=== PATIENT | male | born 1965 | race Caucasian/White ===

== ENCOUNTER 2024-03-03 09:45 | Emergency (ER) | payer BC, OTHER ==
[2024-03-03] MEDS ORDERED: EPINEPHRINE ABBOJECT 1 MG/10 ML IV ONE (09:46)
[2024-03-03] MEDS ORDERED: SODIUM BICARBONATE 50 MEQ/50 ML ABBOJECT IV ONE (09:46)
[2024-03-03 10:00] LABS: Absolute Neutrophil Ct (ANC) 3.76 x10^3/uL (1.78-5.38); BASOPHIL % 0.8 % (0.2-1.2); Basophil (Absolute #) 0.06 x10^3/uL (0.01-0.08); Eosinophil % 3.3 % (0.8-7.0); Eosinophil (Absolute #) 0.26 x10^3/uL (0.04-0.54); Hematocrit 49.5 % (40.1-51.0); Hemoglobin 16.3 g/dL (13.7-17.5); IMMATURE GRAN # 0.11 x10^3u/L (0.001-0.031); IMMATURE GRAN % 1.4 % (0.001-0.429); Lymphocyte (Absolute #) 3.02 x10^3/uL (1.32-3.57); Lymphocytes % 38.7 % (21.8-53.1); Mean Cell Volume 106.7 fL (79.0-92.2); Mean Corpuscular Hemoglobin 35.1 pg (25.7-32.2); Mean Corpuscular Hgb Concent. 32.9 g/dL (32.3-36.5); Mean Platelet Volume 10.3 fL (9.4-12.4); Monocyte (Absolute #) 0.59 x10^3/uL (0.30-0.82); Monocytes % 7.6 % (5.3-12.2); Neutrophil % 48.2 % (34.0-67.9); Platelet Count 126 x10^3/uL (163-337); Red Blood Count 4.64 x10^6/uL (4.63-6.08); Red Cell Distribution Width 11.8 % (11.6-14.4); White Blood Count 7.8 x10^3/uL (4.23-9.07)
[2024-03-03 10:15] LABS: ALBUMIN 4.3 g/dL (3.5-5.0); ANION GAP 26.7 MEQ/L (5-15); Calcium 11.1 mg/dL (8.4-10.2); Creatinine 1 1.69 mg/dL (0.66-1.25); EST GLOMERULAR FILTRATION RATE 46.8 ML/MIN; Potassium 4.8 mmol/L (3.5-5.1); Total Protein 7.5 g/dL (6.3-8.2)
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
[2024-03-03 10:20] LABS: A-aADO2 571; ABG HEMOGLOBIN 16.9; ABG POTASSIUM 4.9 (3.5-5.1); ARTERIAL BLD GAS O2 SATURATION 62.7 % (95-100); ARTERIAL BLOOD GAS BASE EXCESS -12.2 (-2.0-2.0); ARTERIAL BLOOD GAS FIO2 100 %; CARBOXYHEMOGLOBIN 0.8 % THgb (0.0-6.9); HCO3- 20.3 (22-28); HGB O2 SAT 62.1 g/dF (94-100); Lactic Acid 12.6 (0.4-2.0); Methhemoglobin 0.3 % (1.4-1.5); paO2 pAO1 0.08
[2024-03-03 10:21] LABS: ARTERIAL BLOOD GAS PCO2 75 mmHg (35-45); ARTERIAL BLOOD GAS PO2 48 mmHg (75-100); ARTERIAL BLOOD GAS pH 7.04 (7.35-7.45)
[2024-03-03 10:22] LABS: ABG SITE LEFT FEMORAL
== END 2024-03-03 11:00 | disposition expired ==
LOC: ED 09:45
DX: I46.9 Cardiac arrest, cause unspecified (principal)
CPT/HCPCS: 36415; 36600; 80053; 82375; 82803; 83605; 84484; 85025; 85379; 94799; 96374; 96375; 96376; 99281; 99291; J0171